=== PATIENT | female | born 1980 | race Caucasian/White ===

== ENCOUNTER → 2017-09-11 | Outpatient (CLI) | payer OTHER, BC ==
[2017-09-11 11:20] LABS: BASOPHIL % 0.5 % (0-2); PLATELET COUNT 199 x10^3mcL (130-400); RED CELL DISTRIBUTION WIDTH 12.6 % (11.5-14.5)
[2017-09-12 14:04] LABS: ESTRADIOL 54.6 pg/mL (.)
== END | disposition home or self-care (01) ==
LOC: LB 10:00
PROVIDERS: Family Medicine
DX: E28.8 Other ovarian dysfunction (principal); Z11.3 Encounter for screening for infections with a predominantly sexual mode of transmission; Z31.41 Encounter for fertility testing
CPT/HCPCS: 82670; 86694